=== PATIENT | female | born 1975 | race Caucasian/White ===

== ENCOUNTER 2018-11-01 23:04 | Emergency (ER) | payer OTHER, MEDICAID ==
[2018-11-01 23:43] LABS: ADD MAN DIFF? NO
[2018-11-01 23:46] LABS: WHITE BLOOD COUNT 8.7 10^3/ul (4.8-10.8)
[2018-11-01 23:46] LABS: BASOPHIL # 0.1 10^3/ul (0.0-0.1); BASOPHILS % 0.6 % (0.0-2.0); EOSINOPHILS # 0.2 10^3/ul (0.0-0.5); HEMATOCRIT 37.2 % (37.0-47.0); LYMPHOCYTES # 2.2 10^3/ul (0.8-2.9); LYMPHOCYTES % 25.4 % (15.0-51.0); MEAN CORPUSCULAR HEMOGLOBIN 27.9 pg (29.0-33.0); MEAN CORPUSCULAR HGB CONC 32.3 g/dl (32.0-37.0); MEAN CORPUSCULAR VOLUME 86.5 fl (82.0-101.0); MEAN PLATELET VOLUME 9.8 fl (7.4-10.4); MONOCYTE # 0.5 10^3/ul (0.3-0.9); MONOCYTES % 5.9 % (0.0-11.0); NEUTROPHIL # 5.7 10^3/ul (1.6-7.5); NEUTROPHILS % 65.4 % (39.0-77.0); PLATELET COUNT 318 10^3/UL (140-415); RED CELL DISTRIBUTION WIDTH 16.6 % (11.5-14.5)
[2018-11-02 00:05] LABS: ALANINE AMINOTRANSFERASE 59 IU/L (13-69); ALBUMIN 4.5 g/dl (3.3-4.9); ALBUMIN/GLOBULIN RATIO 1.15; ALKALINE PHOSPHATASE 164 IU/L (42-121); ANION GAP 8 (5-13); ASPARTATE AMINO TRANSFERASE 29 IU/L (15-46); BILIRUBIN,INDIRECT 0.3 mg/dl (0-1.1); BILIRUBIN,TOTAL 0.3 mg/dl (0.2-1.3); BLOOD UREA NITROGEN 14 mg/dl (7-20); CALCIUM 8.9 mg/dl (8.4-10.2); CARBON DIOXIDE 24 mmol/L (21-31); CHLORIDE 104 mmol/L (97-110); CREATININE 0.68 mg/dl (0.44-1.00); Estimated GFR > 60 mL/min (>60); GLUCOSE 149 mg/dl (70-220); POTASSIUM 3.5 mmol/L (3.5-5.1); SODIUM 136 mmol/L (135-144); TOTAL PROTEIN 8.4 g/dl (6.1-8.1)
[2018-11-02 00:06] LABS: INR 0.99; PROTIME 13.2 Sec (11.9-14.9)
[2018-11-02 00:07] LABS: PARTIAL THROMBOPLASTIN TIME 36.2 Sec (23.0-35.0)
[2018-11-02 00:18] LABS: TROPONIN-I < 0.012 ng/ml (0.000-0.120)
[2018-11-02 00:21] LABS: B-TYPE NATRIURETIC PEPTIDE 22 PG/ML (0-125)
[2018-11-02] MEDS: SOD CHLORIDE 0.9% 100 ML (00:48)
[2018-11-02] MEDS: IOHEXOL 300MG/ML 150 ML BTL (00:48)
== END 2018-11-02 02:51 | disposition home or self-care (01) ==
LOC: E/R 11-02 02:51
DX: R09.1 Pleurisy (principal); E03.9 Hypothyroidism, unspecified; R07.9 Chest pain, unspecified
CPT/HCPCS: 36415; 71045; 71275; 80053; 81025; 83880; 84484; 85025; 85610; 85730; 93005; 99285-25